=== PATIENT | female | born 1960 | race Caucasian/White ===

== ENCOUNTER 2018-12-03 11:54 | Day surgery (SDC) | payer BC ==
[2018-12-03] MEDS ORDERED: PROPOFOL 40 ML (15:00)
[2018-12-03] MEDS ORDERED: LIDOCAINE 100 MG SYRINGE (15:00)
== END 2018-12-03 17:50 | disposition home or self-care (01) ==
LOC: GIL 11:54
DX: Z12.11 Encounter for screening for malignant neoplasm of colon (principal); Q27.33 Arteriovenous malformation of digestive system vessel; K57.30 Diverticulosis of large intestine without perforation or abscess without bleeding; D12.2 Benign neoplasm of ascending colon; I10 Essential (primary) hypertension
CPT/HCPCS: 45380; 88305